=== PATIENT | male | born 1940 | race Caucasian/White ===

== ENCOUNTER → 2017-11-14 08:44 | Outpatient (CLI) | payer MEDICARE, SELFPAY ==
[2017-11-14 10:41] LABS: Anion Gap 9 (5-15); BUN 38 mg/dL (7-18); BUN/Creat Ratio 19.8 RATIO (10-20); Calcium,Total 8.7 mg/dL (8.5-10.1); Chloride 111 mmol/L (98-107); Cholesterol 174 mg/dL (200); Creatinine, Serum 1.92 mg/dL (0.70-1.30); EST Glomerular Filtration Rate 36 mL/min (>60); Est Glom Filt Rate - Afr Amer 44 mL/min (>60); Glucose 125 mg/dL (74-106); High Density Lipoprotein 32 mg/dL; Potassium 4.7 mmol/L (3.5-5.1); Sodium Level 142 mmol/L (136-145); Triglycerides 232 mg/dL; Very Low Density Lipoprotein 46 mg/dL (5-40)
== END ==
PROVIDERS: Family Provider Family Medicine; PCP Family Medicine; Visit Provider Family Medicine
DX: I10 Essential (primary) hypertension (principal)
CPT/HCPCS: 36415; 80048; 80061

== ENCOUNTER → 2019-01-06 10:11 | Outpatient (CLI) | payer MEDICARE, SELFPAY ==
[2017-05-03 07:25] VITALS: BMI 38.6
--- NOTE | 2019-01-06 10:18 | RAD_ITS ---
HISTORY:heel pain heel pain COMPARISON: None FINDINGS: # of images incl. paperwork: 2 XR Calcaneus Min 2 Views: Right BONE AND JOINTS: No acute fracture or subluxation. SOFT TISSUES: Unremarkable. No radiopaque foreign body. RAD/Calcaneus min 2 Views IMPRESSION: No acute pathology at 0157 Reported and signed by: Angeline Brown DO Electronically Signed: Angeline Brown DO at 1:56 EDT Tel , Service support ,
--- NOTE | 2019-01-06 10:18 | RAD_ITS ---
HISTORY:heel pain heel pain COMPARISON: None FINDINGS: # of images incl. paperwork: 2 XR Calcaneus Min 2 Views: Left BONE AND JOINTS: No acute fracture or subluxation. SOFT TISSUES: Unremarkable. No radiopaque foreign body. RAD/Calcaneus min 2 Views IMPRESSION: No acute pathology at 0158 Reported and signed by: Angeline Brown DO Electronically Signed: Angeline Brown DO at 1:57 EDT Tel , Service support ,
== END ==
PROVIDERS: Family Provider Family Medicine; PCP Family Medicine; Referring Provider Family Medicine; Visit Provider Family Medicine
DX: M79.672 Pain in left foot (principal); M79.671 Pain in right foot
CPT/HCPCS: 73650

== ENCOUNTER → 2020-01-10 16:10 | Outpatient (CLI) | payer MEDICARE, SELFPAY ==
[2017-05-03 07:25] VITALS: BMI 38.6
[2020-01-10 18:21] LABS: Anion Gap 9 (5-15); BUN 26 mg/dL (7-18); BUN/Creat Ratio 11.6 RATIO (10-20); Chloride 106 mmol/L (98-107); Creatinine, Serum 2.25 mg/dL (0.70-1.30); EST Glomerular Filtration Rate 30 mL/min (>60); Est Glom Filt Rate - Afr Amer 36 mL/min (>60); Glucose 139 mg/dL (74-106); Potassium 4.1 mmol/L (3.5-5.1); Sodium Level 139 mmol/L (136-145)
--- OUTSIDE RECORDS SUMMARY | 2020-05-14 13:50 | XMS RPT_ITS | CCD ---
:1940 External Reference #:[id number] Author Organization [facility] Care Team Providers Name Role Phone Cornelio JAVA USER INTERFACE DEVELOPER, N Unavailable Unavailable Cornelio JAVA USER INTERFACE DEVELOPER, N Unavailable Unavailable Cornelio JAVA USER INTERFACE DEVELOPER, N Unavailable Unavailable Allergies Reported Allergen Reaction(s) Severity Date of Onset Location acellular pertussis blisters in mouth Critical, 12-02-2013 - [facility] vaccine, inactivated and severe headache Critical (81717) / diphtheria toxoid vaccine, inactivated / poliovirus vaccine inactivated, type 1 (sifuentes) / poliovirus vaccine inactivated, type 2 (mef-1) / poliovirus vaccine inactivated, type 3 (saukett) / tetanus toxoid vacci amLODIPine caused pt loss of Critical, 05-11-2012 - [facility] in[facility] vision Critical (18840) diphtheria toxoid blisters in mouth Critical, 12-02-2013 - [facility] Clinic vaccine, inactivated and severe headache Critical (04600) / tetanus toxoid vaccine, inactivated Sulfonamides upset stomch, Critical, [facility] (Antibiotic) itching, groggy Critical (38380) Medications Medication Name Sig Date Prescriber Location acetaminophen TYLENOL TABS 10-12-2010 [facility] ACETAMINOPHEN TABS (15867) [id number] Jose Meza MD TYLENOL TABS ACETAMINOPHEN TABS [id number] [facility] (57491) Jose Meza MD TYLENOL TABS ACETAMINOPHEN TABS 10-12-2010 [facility] (48250) [id number] Jose Meza MD TYLENOL TABS ACETAMINOPHEN TABS [id number] [facility] (87340) Jose Meza MD TYLENOL TABS ACETAMINOPHEN TABS [id number] [facility] (66628) Jose Meza MD TYLENOL TABS ACETAMINOPHEN TABS 10-12-2010 [facility] (21559) [id number] Jose Meza MD acetaminophen / ACETAMINOPHEN-CODEINE #3 06-03-2013 - [facility] Now codeine 300-30 MG TABS One tablet 09-07-2014 Cl inic by mouth three times daily ( 39658) as needed pain ACETAMINOPHEN-CODEINE [id number] Jose Meza MD acetaminophen / HYDROCODONE-ACETAMINOPHEN 09-07-[address] [facility] Now HYDROcodone 5-325 MG TABS one tablet Cli trixie by mouth every 4-6hr as (449 00) needed moderate to severe pain, avoid driving or operating machine under the influence of medication. HYDROCODONE-ACETAMINOPHEN [id number] Jose Meza MD acetaminophen / OXYCODONE-ACETAMINOPHEN 06-04-2013 [facility] Now oxyCODONE 5-325 MG TABS One tablet 11-29-2013 Cli [place] by mouth three times daily ( 91479) as needed moderate to severe pain, avoid driving or operating machine under the influence of medication. OXYCODONE-ACETAMINOPHEN [id number] Jose Meza MD PERCOCET 5-325 MG TABS for severe apin 07-03-2010 [facility] (75873) OXYCODONE-ACETAMINOPHEN [id number] Jose Meza MD allopurinol ALLOPURINOL TABS as directed 06-09-2017 [facility] (03543) ALLOPURINOL TABS [id number] Nani Grimes LPN ALLOPURINOL TABS as directed 06-09-2017 [facility] (70290) ALLOPURINOL TABS [id number] Nani Grimes LPN ALLOPURINOL TABS as directed 06-09-2017 [facility] (55347) ALLOPURINOL TABS [id number] Nani Grimes LPN ALLOPURINOL 300 MG TABS One tablet 11-29-2013 - 02-10-2014 [facility] (75234) by mouth daily ALLOPURINOL [id number] Jose Meza MD amitriptyline AMITRIPTYLINE HCL 10 MG 11-29-2013 - Laurita Islas Arianna [facility] TABS One to two tablets 12-17-2013 (446 91) by mouth daily every night AMITRIPTYLINE HCL [id number] Jose Meza MD amLODIPine AMLODIPINE BESYLATE 5 03-13-2012 [facility] No w Clinic MG TABS One tablet by 11-29-2013 (69549 ) mouth daily AMLODIPINE BESYLATE [id number] Jose Meza MD betamethasone BETAMETHASONE VALERATE 10-26-2010 [facility] 0.1 % OINT apply to 01-29-2011 (82683) affected area in leg twice daily BETAMETHASONE VALERATE 63742440941 Jose Meza MD cephalexin KEFLEX 500 MG CAPS one 07-03-2010 [facility] cap every six hrs x 9 (54371 ) days CEPHALEXIN [id number] Jose Meza MD cetirizine ZYRTEC ALLERGY 10 MG 10-29-2010 - [facility] CAPS One tablet by 01-29-2011 (30881) mouth daily CETIRIZINE HCL [id number] Jose Meza MD ZYRTEC ALLERGY 10 MG TABS 10-12-2010 - - Jose Friedman [facility] One tablet by mouth daily (90540 ) CETIRIZINE HCL [id number] Jose Meza MD clindamycin CLEOCIN-T 1 % LOTN apply 02-25-2011 - 06-03-2013 [facility] twice daily as needed (92403 ) CLINDAMYCIN PHOSPHATE [id number] Jose Meza MD colchicine COLCHICINE TABS as 06-09-2017 [facility] C linic directed (96230) COLCHICINE TABS [id number] Nani Grimes LPN COLCHICINE TABS as directed COLCHICINE 06-09-2017 [facility] (19464) TABS [id number] Nani Grimes LPN COLCHICINE TABS as directed COLCHICINE 06-09-2017 [facility] (33897) TABS [id number] Nani Grimes LPN cyclobenzaprine CYCLOBENZAPRINE HCL 5 MG 02-10-2014 - [facility] TABS One tablet by mouth 03-25-2014 (44 691) three times daily as needed, avoid driving or operating machine under the influence of medication. CYCLOBENZAPRINE HCL [id number] Jose Meza MD CYCLOBENZAPRINE HCL 5 MG TABS One 10-21-2011 - 12-13-2011 [facility] (92517) tablet by mouth three times daily as needed back pain, avoid driving or operating machine under the influence of medication. CYCLOBENZAPRINE HCL [id number] Jose Meza MD FLEXERIL 5 MG TABS One tablet by 07-03-2010 - 01-29-2011 [facility] (40977) mouth three times daily CYCLOBENZAPRINE HCL [id number] Jose Meza MD cycloSPORINE RESTASIS 0.05 % EMUL 04-19-2014 - Jose Meaz MD [facility] Now 1 gtt each eye twice 06-09-2017 Clinic daily (73445) CYCLOSPORINE [id number] Jose Meza MD desonide DESONIDE 0.05 % CREA 08-13-2012 - Jose Meza MD [facility] Now apply to affected 06-09-2017 Clinic area twice daily (88879) DESONIDE [id number] Jose Meza MD diclofenac VOLTAREN 1 % GEL 2-4 04-06-2013 [facility] Now gram apply to 09-07-2014 Clinic affected area three (44887) times a day as needed DICLOFENAC SODIUM 54091210980 Jose Meza MD dicloxacillin DICLOXACILLIN SODIUM 10-12-2010 [facility] No w 500 MG CAPS One 12-04-2010 Clinic tablet by mouth four (23488) times daily DICLOXACILLIN SODIUM [id number] Torsten Velasquez DO etodolac ETODOLAC 300 MG CAPS 10-15-2011 - Jose Meza MD [facility] Now One tablet by mouth 01-15-2012 [facility] three times daily as (19595) needed, take with food ETODOLAC [id number] Jose Meza MD fluticasone FLONASE 50 MCG/ACT 10-12-2010 - Jose Meza MD [facility] No w SUSP 2 spray/nostril 01-29-2011 Clinic daily (70832) FLUTICASONE PROPIONATE [id number] Jose Meza MD HANDICAPPED PLACARD HANDICAPPED PLACARD 06-03-2013 - W Now Dx: degenerative 06-09-2017 Clinic joint disease, (96098) chronic back pain duration: 2 years HANDICAPPED MARIANA Grimes LPN HANDICAPPED PLACARD Dx: 06-03-[address] [facility] Clinic degenerative joint (88314) disease, chronic back pain duration: 2 years HANDICAPPED MARIANA Meza MD HANDICAPPED PLACARD Dx: 06-03-[address] [facility] degenerative joint (63502) disease, chronic back pain duration: 2 years HANDICAPPED MARIANA Meza MD HANDICAPPED PLACARD Dx: 06-03-2013 - 06-09-2017 [facility] degenerative joint (93132) disease, chronic back pain duration: 2 years HANDICAPPED MARIANA Grimes LPN HANDICAPPED PLACARD Dx: 06-03-[address] [facility] degenerative joint (79579) disease, chronic back pain duration: 2 years HANDICAPPED MARIANA Meza MD HANDICAPPED PLACARD Dx: 06-03-2013 - 06-09-2017 [facility] degenerative joint (22795) disease, chronic back pain duration: 2 years HANDICAPPED MARIANA Grimes LPN hydroCHLOROthiazide HYDROCHLOROTHIAZIDE 12.5 01-29-2011 [facility] Now MG TABS One tablet by 06-25-2012 Clinic mouth daily (4469 1) HYDROCHLOROTHIAZIDE [id number] Jose Meza MD hydrocortisone ANUSOL-HC 2.5 % CREA 07-03-2010 - Jose Meza [facility] N ow apply to affected area 10-12-2010 Clini c three times a day as (95060) needed HYDROCORTISONE [id number] Jose Meza MD indomethacin INDOMETHACIN 25 MG CAPS 1 06-09-2017 Ramses Islas [facility] Now capsule 4 times a day Arnulfo DELGADO [facility] INDOMETHACIN (446 91) [id number] Ramses Arredondo MS INDOMETHACIN 50 MG CAPS 09-07-2014 - 06-09-[address] [facility] One tablet by mouth three (18765 ) times daily as needed, take with food INDOMETHACIN [id number] Jose Meza MD ketoconazole KETOCONAZOLE 2 % CREA 10-26-2010 - Jose Meza MD [facility] apply to affected 06-09-2017 (51303) area twice daily KETOCONAZOLE [id number] Jose Meza MD lisinopril LISINOPRIL 10 MG TABS 12-30-[address] [facility] One tablet by mouth (45471) daily LISINOPRIL [id number] Jose Meza MD LISINOPRIL TABS as 12-30-2013 [facility] Clini c directed (16122) LISINOPRIL TABS [id number] Nani Grimes LPN LISINOPRIL TABS as 12-30-2013 [facility] Now Clini c directed (64568) LISINOPRIL TABS [id number] Nani Grimes LPN LISINOPRIL TABS as 12-30-2013 [facility] Clini c directed (69579) LISINOPRIL TABS [id number] Nani Grimes LPN LISINOPRIL 20 MG TABS One 11-13-2011 - 03-13-[address] [facility] tablet by mouth daily (47010) LISINOPRIL [id number] Jose Meza MD LISINOPRIL 20 MG TABS One 07-03-2010 - 10-12-2010 [facility] tablet by mouth daily (06569) LISINOPRIL 41996741333 Jose Meza MD magnesium oxide MAGNESIUM 400 MG CAPS 02-10-2014 - [facility] One tablet by mouth 06-22-2014 (51196) twice daily MAGNESIUM OXIDE [id number] Jose Meza MD metFORMIN METFORMIN HCL 500 MG 07-03-2010 - [facility] TABS One tablet by 10-12-2010 (68231) mouth daily METFORMIN HCL [id number] Jose Meza MD metoprolol METOPROLOL SUCCINATE 11-29-2013 - [facility] ER 50 MG VM59O-OLD One 02-10-2014 (4469 1) tablet by mouth daily METOPROLOL SUCCINATE [id number] Jose Meza MD MULTIPLE CENTRUM TABS One 06-09-2017 [facility] Now Cli trixie VITAMINS-MINERALS tablet by mouth daily ( 72257) MULTIPLE VITAMINS-MINERALS [id number] Nani Grimes JAVA USER INTERFACE DEVELOPER CENTRUM TABS One tablet by mouth daily MULTIPLE [facility] (40805) VITAMINS-MINERALS [id number] Jose Meza MD CENTRUM TABS One tablet by mouth daily 06-09-2017 [facility] (00168) MULTIPLE VITAMINS-MINERALS [id number] Nani Grimes JAVA USER INTERFACE DEVELOPER CENTRUM TABS One tablet by mouth daily MULTIPLE [facility] (66748) VITAMINS-MINERALS [id number] Jose Meza MD CENTRUM TABS One tablet by mouth daily 06-09-2017 [facility] (15935) MULTIPLE VITAMINS-MINERALS [id number] Nani Grimes JAVA USER INTERFACE DEVELOPER CENTRUM TABS One tablet by mouth daily MULTIPLE [facility] (17707) VITAMINS-MINERALS [id number] Jose Meza MD mupirocin BACTROBAN 2 % OINT 10-12-2010 - Jose Meza MD [facility] No w Clinic apply to affect area 10-22-2010 (84277) 4 times daily MUPIROCIN [id number] Jose Meza MD naproxen ALEVE 220 MG TABS 11-13-2011 [facility] Cl inic two tabs as needed (19844) NAPROXEN SODIUM 75891026956 Jose Meza MD nebivolol BYSTOLIC 10 MG TABS 06-22-2014 - Jose Meza MD [facility] ow Clinic One tablet by mouth 09-07-2014 (36555) daily NEBIVOLOL HCL [id number] Jose Meza MD olopatadine PATANOL 0.1 % SOLN 1 04-10-2010 - [facility] gtt twice daily 07-03-2010 (12731) OLOPATADINE HCL [id number] Jose Meza MD osteo bi-flex OSTEO BI-FLEX 03-13-2012 [facility] Clini c REGULAR STRENGTH (33752) TABS One tablet by mouth twice daily` GLUCOSAMINE-CHONDROI TIN TABS [id number] Jose Meza MD OSTEO BI-FLEX REGULAR STRENGTH TABS 03-13-2012 [facility] One tablet by mouth daily (90510) GLUCOSAMINE-CHONDROITIN TABS [id number] Jose Meza MD OSTEO BI-FLEX REGULAR STRENGTH TABS 03-13-2012 - 06-22-2014 [facility] One tablet by mouth twice daily` (93327) GLUCOSAMINE-CHONDROITIN TABS [id number] Jose Meza MD OSTEO BI-FLEX REGULAR STRENGTH TABS 03-13-2012 [facility] One tablet by mouth twice daily` (37618) GLUCOSAMINE-CHONDROITIN TABS [id number] Jose Meza MD OSTEO BI-FLEX REGULAR STRENGTH TABS 03-13-2012 [facility] One tablet by mouth daily (69347) GLUCOSAMINE-CHONDROITIN TABS [id number] Jose Meza MD OSTEO BI-FLEX REGULAR STRENGTH TABS 03-13-2012 - 06-22-2014 [facility] One tablet by mouth twice daily` (72433) GLUCOSAMINE-CHONDROITIN TABS [id number] Jose Meza MD OSTEO BI-FLEX REGULAR STRENGTH TABS 03-13-2012 - 06-22-2014 [facility] One tablet by mouth twice daily` (19074) GLUCOSAMINE-CHONDROITIN TABS [id number] Jose Meza MD OSTEO BI-FLEX REGULAR STRENGTH TABS 03-13-2012 [facility] One tablet by mouth twice daily` (39639) GLUCOSAMINE-CHONDROITIN TABS [id number] Jose Meza MD OSTEO BI-FLEX REGULAR STRENGTH TABS 03-13-2012 [facility] One tablet by mouth daily (72916) GLUCOSAMINE-CHONDROITIN TABS [id number] Jose Meza MD OSTEO BI-FLEX REGULAR STRENGTH TABS [facility] GLUCOSAMINE-CHONDROITIN TABS (44 691) [id number] Jose Meza MD OSTEO BI-FLEX REGULAR STRENGTH TABS [facility] GLUCOSAMINE-CHONDROITIN TABS (44 691) [id number] Jose Meza MD OSTEO BI-FLEX REGULAR STRENGTH TABS [facility] GLUCOSAMINE-CHONDROITIN TABS (44 691) [id number] Jose Meza MD prazosin PRAZOSIN HCL 1 MG 10-29-2010 - [facility] Now Cl inic CAPS One tablet by 01-29-2011 (90326) mouth twice daily PRAZOSIN HCL [id number] Jose Meza MD predniSONE PREDNISONE 20 MG TABS 12-17-2013 - Jose Meza MD [facility] Two tablets by mouth 12-22-2013 (87479) daily PREDNISONE [id number] Jose Meza MD PREDNISONE 20 MG TABS One 10-26-2010 - 12-04-[address] [facility] tablet by mouth twice (75928) daily PREDNISONE [id number] Jose Meza MD sildenafil VIAGRA 50 MG TABS one 07-19-2011 - [facility] No w Clinic daily as needed 12-13-2011 (48356) SILDENAFIL CITRATE [id number] Jose Meza MD tamsulosin TAMSULOSIN HCL 0.4 MG 03-08-2014 - Jose Meza MD [facility] CAPS One tablet by 06-09-2017 (77220) mouth daily TAMSULOSIN HCL [id number] Jose Meza MD FLOMAX CAPS One tablet by mouth daily TAMSULOSIN HCL CAPS [facility] (11944) [id number] Jose Meza MD FLOMAX CAPS One tablet by mouth daily TAMSULOSIN HCL CAPS [facility] (40113) [id number] Jose Meza MD FLOMAX CAPS One tablet by mouth daily TAMSULOSIN HCL CAPS [facility] (17848) [id number] Jose Meza MD triamcinolone TRIAMCINOLONE 09-21-2014 - [facility] Now ACETONIDE 0.025 % 06-09-2017 Clinic OINT apply to (99445) affected area twice daily for short period of time TRIAMCINOLONE ACETONIDE [id number] Nani Grimes JAVA USER INTERFACE DEVELOPER varicella-zoster ZOSTAVAX 91106 11-29-2013 - Jose Meza MD [facility] No w virus vaccine live UNT/0.65ML SUSR one 06-09-2017 Cl inic ([place]-merck) strain dose sc once (94438) ZOSTER VACCINE LIVE [id number] Jose Meza MD Problems Active Problems Category Problem Name Status Date Location Acute and unspecified Renal failure syndrome Active - [facility] renal failure (27820) Essential hypertension Benign essential Active 04-10-2010 - [facility] hypertension (10957) Gout and other crystal Gout Active 11-29-2013 - [facility] ow Clinic arthropathies (39927) Hyperplasia of prostate Benign prostatic Active 04-10-2010 - [facility] hyperplasia without (30301) lower urinary tract symptoms Inflammation, infection Atopic conjunctivitis Active 04-10-20 10 - [facility] Clinic of eye (28430) Osteoarthritis Osteoarthritis Active [facility] Now Cli [place] (91349) Other nutritional; Obesity Active 04-10-2010 - [facility] Now C linic endocrine; and metabolic (44 691) disorders Other upper respiratory Allergic rhinitis Active 10-26-2010 [facility] disease (09170) Spondylosis; Chronic low back pain Active 07-28-1969 [facility] intervertebral disc (61054) disorders; other back problems Unclassified Male erectile disorder Active 07-19-2011 [facility] (50214) Unclassified General examination of Active 10-29-2010 [facility] patient (72582) Unclassified Screening for malignant Active 10-12-2010 [facility] neoplasm of colon (55257) Past or Other Problems Category Problem Name Status Date Location Abdominal pain Flank pain Completed 05-09-2011 [facility] Clini c - 06-03-2013 (62911) - Deficiency and other Anemia Completed 12-17-2013 [facility] anemia (65706) Diabetes mellitus without Impaired fasting Completed 07-03-2010 [facility] complication glycaemia (33724) Genitourinary symptoms Proteinuria Completed 06-25-2012 [facility] and ill-defined (65296) conditions Hemorrhoids External hemorrhoids Completed 07-03-2010 [facility] (96847) Immunizations and Need for prophylactic Completed 05-11-2012 [facility] screening for infectious vaccination and - 02-10-2014 (63384) disease inoculation against - lesgjplajb-ljbmgod-cz rtussis, combined [DTP] [DTaP] Mycoses Pityriasis versicolor Completed 02-25-2011 [facility] (22272) Nutritional deficiencies Cobalamin deficiency Completed 03-25-20 [facility] (10084) Other gastrointestinal Chronic constipation Completed 05-15-2011 [facility] disorders (81036) Other inflammatory Pruritus of skin Completed 10-26-2010 [facility] condition of skin (11883) Other injuries and Foreign body of foot Completed 09-21-2014 [facility] conditions due to (56112) external causes Other nervous system Paresthesia Completed 11-29-2013 [facility] disorders - 02-10-2014 (26111) - Other non-traumatic joint Arthralgia of the Completed 06-03-2013 [facility] disorders ankle and/or foot (03858) Other skin disorders Folliculitis Completed 04-10-2010 - [facility] Clinic - 02-10-2014 (04750) - Other upper respiratory Acute sinusitis Completed 10-12-2010 [facility] Clinic infections - 06-03-2013 (20106) - Skin and subcutaneous Cellulitis of foot Completed 04-10-2010 - [facility] Clinic tissue infections - 02-10-2014 (27051) - Unclassified Stool finding Completed 06-25-2012 [facility] Now [facility] - 04-06-2013 (67901) - Unclassified Immunization status Completed 10-29-2010 - [facility] Clinic - 02-10-2014 (64295) - Unclassified Encounter for Completed 04-10-2010 [facility] Clinic screening for (88080) malignant neoplasm of prostate Results Result Name Value Range Unit Interpretation Flag Date Location progress on 2020-01 PROGRESS HNO ID: [id number] Normal 02-24-2020 [facility] Author: Robi Restrepo ([id number]) Service: ? Author Type: Physician Type: Progress Notes Filed: 02/24/2020 2:32 PM Note Text: Assessment and Plan 1. Dry eye syndrome of both eyes -with tearing and eyelid skin irritation 2. 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 Senile ectropion of left lower eyelid -main culprits in tearing (impaired tear dynamics) 5. Combined form of age-related cataract, both eyes -early visual significance Plan: -artificial tears ointment 1-twice a day both eyes -if not better, to see oculoplastics -back to me in 1 year (spends in [place]) for dilate d fundus exam and evaluation of cataract progression, sooner as needed I have confirmed and edited as necessary the relevant ophtha lmic history, ROS, and the neuro exam findings as obtained by others. I mitchell ve seen and examined Frederick Harding. I have discussed the case and the management of this patient 's care with the Resident/Fellow, if applicable. I also have reviewed and agree with the assessment and plan as stated above and agree with all o f its relevant components. Robi Michelle MD February 24, 2020 2:31 PM office visit: uc: gout exacerbation on 2017-06-09 Dietary management yes Invalid 06-09-2017 - [facility] Now education, guidance, Interpretation Code 06-09-2017 Clinic and counseling (4469 1) (procedure) Documentation of Done Invalid 06-09-2017 [facility] Now current medications Interpretation Code 06-09-2017 Clinic (procedure) (41037) Fall risk assessment No Invalid [facility] Now Interpretation Code 06-09-2017 Clinic (36867) Tobacco smoking Never Invalid 06-09-2017 - [facility] Now status NHIS Interpretation Code 06-09-20 17 Clinic (84294) Tobacco use CPHS Former Invalid 06-09-2017 [facility] Now smoker Interpretation Code 06-09-2017 Clinic (82903) office visit on 11-27-25 Dietary management yes Invalid Interpretatio n 10-20-2014 [facility] Now Clinic education, guidance, Code 5 (11781) and counseling (procedure) Documentation of Done Invalid Interpretation 10-20-2014 [facility] Now Clinic current medications Code 10-20-2014 (68811) (procedure) lab report: vitamin d,25 hydroxy on 2014-08-05 Vitamin D 25-OH 25.6 ng/mL Invalid Interpretation 0 08-05-2014 [facility] Now Clinic Code 08-05-2014 (93807) lab report: pth,intact on 2014-08-05 Parathyrin intact 89 14-72 pg/mL Critically high 2014 [facility] Now Clinic (PTH) 08-05-2014 (15460) lab report: uric acid on 2014-08-04 Urate 8.5 3.5-7.2 mg/dL Critically high 08-04-2014 - 0 08-04-2014 [facility] Clinic (34924) lab report: protein+creatinine ratio,uri ne on 2014-08-04 PROT:CRE RATIO 82 mg/g 0-200 Invalid 08-04-2014 [facility] H Now CRE Interpretation Code 08-04-2014 Clinic (71695) Protein [Mass] 10.6 <11.9 mg/dL Invalid 08-04-2014 H Now in Urine Interpretation Code 08-04-2014 Clinic collected for (54907 ) unspecified duration Urine, 128.3 NO RANGE mg/dL Invalid 08-04-2014 [facility] Now creatinine EST. Interpretation Code 5 Clinic (83785) lab report: phosphorus on 2014-08-04 PHOS 2.6 2.5-4.9 mg/dL Invalid Interpretation 015 - [facility] Now Clinic Code 08-04-2014 (81197) lab report: magnesium on 2014-08-04 Magnesium 1.5 1.8-2.4 mg/dL Critically low 08-04-2014 - [facility] Now Clinic (84352) lab report: lipid profile on 2014-08-04 Cholesterol 197 200 mg/dL Invalid 08-04-2014 [facility] N ow Interpretation Code 08-04-2014 Clinic (91147) HDL Cholesterol 34 mg/dL Critically low 5 - [facility] Now 08-04-2014 Clinic (63397) LDL Cholesterol 116 0-130 mg/dL Invalid 08-04-2014 - [facility] Now Interpretation Code 08-04-2014 Clinic (34141) Triglyceride 237 0-199 mg/dL Critically high 08-04-2014 - [facility] Now 08-04-2014 Clinic (32672) very low density 47 5-40 mg/dL Critically high 015 - [facility] Now lipoproteins 08-04-2014 Clinic (93406) lab report: hemoglobin a1c on 2014-08-04 Hemoglobin 5.9 4.2-6.3 % Invalid 08-04-2014 [facility] No w A1c/Hemoglobin.total mass Interpretation Code 08-04-2014 Clinic fraction (Bld) ([id number] 1) lab report: cbc w/diff, automated on 2014-08-04 Absolute Neut 5.0 X10 2.0-7.7 Invalid 08-04-2014 [facility] Now 3/UL Interpretation 08-04-2014 Clin ic Code (97731) Basophils/100 WBC 0.4 0-1 % Invalid 08-04-2014 - [facility] Now Auto (Bld) Interpretation 08-04-2014 Cli trixie Code (47242) Eosinophils/100 2.6 0-5 % Invalid 08-04-2014 - [facility] Now leukocytes Interpretation 08-04-2014 Cli trixie Code (31223) Erythrocytes 4.62 4.6-6.2 10*6/u Invalid 08-04-2014 [facility] Now (RBC) L Interpretation 08-04-2014 Clin ic Code (16504) Hematocrit (HCT) 40.6 40-54 % Invalid 08-04-2014 [facility] Now Interpretation 08-04-2014 Clin ic Code (42215) Hemoglobin mass 13.8 13.0-16.5 g/dL Invalid 08-04-2014 [facility] Now conc (Bld) Interpretation 08-04-2014 Cli trixie Code (23698) Lymphocytes/100 20.2 19-41 % Invalid 08-04-2014 [facility] Now leukocytes Interpretation 08-04-2014 Cli trixie Code (37952) MCH 29.9 27.0-32.0 pg Invalid 08-04-2014 [facility] Now Interpretation 08-04-2014 Clin ic Code (51224) MCHC mass conc 34.0 G/GL 32-36 Invalid 08-04-2014 [facility] Now (RBC) Interpretation 08-04-2014 Clin ic Code (81072) MCV 87.9 80-94 fL Invalid 08-04-2014 [facility] Now Interpretation 08-04-2014 Clin ic Code (13439) Monocytes/100 9.1 0-10 % Invalid 08-04-2014 [facility] Now leukocytes Interpretation 08-04-2014 Cli trixie Code (92093) Neutrophils/100 67.4 47-70 % Invalid 08-04-2014 Now WBC Auto (Bld) Interpretation 08-04-2014 Clinic Code (54158) Platelets 215 150-450 10*3/m Invalid 08-04-2014 [facility] Now m3 Interpretation 08-04-2014 Clin ic Code (28076) PMV by Johann 9.4 6.2-12.0 fL Invalid 08-04-2014 [facility] Now Interpretation 08-04-2014 Clin ic Code (26395) WBC (Leukocytes) 7.4 4.4-11.0 10*9/L Invalid 08-04-2014 [facility] Now Interpretation 08-04-2014 Clin ic Code (20918) lab report: basic metabolic profile (bmp ) on 2014-08-04 Anion gap 8 5-15 mmol/L Invalid 08-04-2014 [facility] Now Interpretation Code 08-04-2014 Clinic ([id number]) BUN/Creatinine 11.6 RATIO 10-20 Invalid 08-04-2014 - [facility] Now Ratio Interpretation Code 08-04-2014 Clinic (32559) Calcium 8.8 8.5-10.1 mg/dL Invalid 08-04-2014 [facility] Now Interpretation Code 08-04-2014 Clinic (43421) Chloride 106 98-107 mmol/L Invalid 08-04-2014 [facility] Now Interpretation Code 08-04-2014 Clinic ([id number]) CO2 23.0 21.0-32.0 mmol/L Invalid 08-04-2014 [facility] Now Interpretation Code 08-04-2014 Clinic ([id number]) Creatinine 1.9 0.8-1.3 mg/dL Critically high 08-04-2014 - [facility] Now 08-04-2014 Clinic (48095) Glucose mass 120 70-110 mg/dL Critically high 08-04-2014 - [facility] Now conc 08-04-2014 Clinic ([id number]) Potassium molar 4.4 3.5-5.1 mmol/L Invalid 08-04-2014 - [facility] Now conc Interpretation Code 08-04-2014 Clinic (75616) Sodium 137 136-145 mmol/L Invalid 08-04-2014 [facility] Now Interpretation Code 08-04-2014 Clinic ([id number]) Urea nitrogen 22 7-18 mg/dL Critically high 08-04-2014 [facility] Now 08-04-2014 Clinic ([id number]) lab report: albumin, serum on 2014-08-04 Albumin 3.9 3.4-5.0 g/dL Invalid Interpretation 015 - [facility] Now Clinic Code 08-04-2014 ([id number]) lab report: methyl on 2014-03-24 METHYL 200 0-378 nmol/L Normal 03-24-2013 - 03-24-[address] [facility] Now [facility] ([id number]) lab report: retic o n 2014-03-21 Reticulocytes/100 1.33 0.5-1.5 % Normal 03-21-2014 [facility] Now Clinic erythrocytes 03-21-2014 ([id number] ) lab report: ibc on 2014-02-09 Iron 109 65-175 ug/dL Normal 02-09-2014 [facility] Now Clinic 02-09-2014 ([id number]) iron binding 291 250-450 ug/dL Normal 02-09-2014 [facility] Now Clinic capacity, total 02-09-2014 ([id number] [id number]) lab report: genesis on 2014-02-09 Ferritin 181 26-388 ng/mL Normal 02-09-2013 - 02-09-[address] [facility] Now [facility] ([id number]) clinical lists update on 2014-01-05 Tobacco use Former smoker Invalid 01-05-2014 - [facility] Now Clinic [facility] Interpretation Code 01-05-2014 ([id number]) office visit on 10-31-04 Tobacco smoking Never Invalid Interpretation 0 12-30-2013 [facility] Now Clinic status NHIS Code 12-30-2013 ([id number]) lab report: ua on specific gravity, 1.015 1.002-1.030 Normal 12-22-2013 [facility] Now Clinic urine 12-22-2013 ([id number]) lab report: tsh on 2013-12-22 Thyroid stimulating 1.64 0.358-3.74 u[iU]/mL Normal [facility] hormone (TSH) 12-22-2013 ([id number] 1) lab report: sed on 2013-12-22 Erythrocyte sedimentation 9 0-20 mm/h Normal 11-26 [facility] Now Clinic rate 12-22-2013 ([id number]) lab report: crp on 2013-12-22 C reactive protein < 2.90 0.0-3.0 mg/L Normal 12-22-2013 [facility] Clinic (CRP) 12-22-2013 ([id number]) lab report: cmp on 2013-12-22 Alanine 42 12-78 U/L Normal 12-22-2013 [facility] Now aminotransferase (ALT) [address] [place] [address] ([id number]) Albumin/Globulin Ratio 1.2 RATIO 0.9-2.4 {ratio} Normal - [facility] Now 12-22-2013 Clinic ([id number]) Aspartate 17 15-37 U/L Normal 12-22-2013 [facility] Now aminotransferase (AST) [facility] Clinic (55170) Bilirubin (total) 0.40 0.00-1.00 mg/dL Normal 12-22-2013 [facility] Now 12-22-2013 Clinic ([id number]) Globulin 3.0 2.7-4.2 g/dL Normal 12-22-2013 - [facility] Now 12-22-2013 Clinic ([id number]) Protein 6.7 6.4-8.2 g/dL Normal 12-22-2013 - [facility] Now 12-22-2013 Clinic ([id number]) lab report: b12 on 2013-12-22 Cobalamins (Vitamin 362 211-911 pg/mL Normal 12-22-2013 - [facility] Now Clinic B12) 12-22-2013 ([id number]) office visit on 201 09-07-28 Bilirubin Ql (U) negative Invalid 06-25-2012 [facility] Now Interpretation Code 06-25-2012 Clinic ([id number]) blood in urine 3+ Invalid 06-25-2012 [facility] Now (hemoglobin) by Interpretation Code 05-29 Clinic dipstick (15915) Urine, appearance clear Invalid 06-25-2012 [facility] Now Interpretation Code 06-25-2012 Clinic ([id number]) Urine, color yellow Invalid 06-25-2012 [facility] Now Interpretation Code 06-25-2012 Clinic ([id number]) Urine, glucose negative Invalid 06-25-2012 [facility] Now presence Interpretation Code 06-25-2012 Clinic ([id number]) Urine, ketones negative Invalid 06-25-2012 - [facility] Now presence Interpretation Code 06-25-2012 Clinic ([id number]) Urine, leukocyte negative Invalid 06-25-2012 [facility] Now esterase presence Interpretation Code Clinic ([id number]) Urine, nitrite negative Invalid 06-25-2012 [facility] Now presence Interpretation Code 06-25-2012 Clinic ([id number]) Urine, pH 6.0 [pH] Invalid 06-25-2012 [facility] Now Interpretation Code 06-25-2012 Clinic ([id number]) Urine, protein 3+ Invalid 06-25-2012 [facility] Now Interpretation Code 06-25-2012 Clinic ([id number]) Urine, urobilinogen negative Invalid 06-25-2012 [facility] Now presence Interpretation Code 06-25-2012 Clinic ([id number]) office visit on 201 08-06-27 Colonoscopy Normal Invalid Interpretation 05-24 - [facility] Now Clinic (procedure) Code 05-24-2011 ([id number]) lab report: insu on 2010-04-15 insulin, serum 16.5 0.0-24.9 u[iU]/mL Normal 04-15-2010 - [facility] Now Clinic 04-15-2010 ([id number]) lab report: psa on 2010-04-13 prostate specific 1.5 0.0-4.0 ng/mL Normal 04-13-2010 - [facility] antigen (PSA) 04-13-2010 ([id number] 1) screening lab report: cmp on 2010-04-13 Alkaline phosphatase 84 50-136 U/L Normal 0 - [facility] (ALP) 04-13-2010 ([id number]) Vital Signs Vital Sign Description Value / Unit Date Location The following section is limited to 5 en tries per type and includes entries from the following time range: 20141020 - 20170528 3. BMI (Body Mass Index) 36.58 kg/m2 06-09-2017 - 06-09-2017 [facility] ([id number]) BMI (Body Mass Index) 37.63 kg/m2 10-20-2014 - 10-20-2014 [facility] (06461) Body Temperature 98.5 [degF] 06-09-2017 - 06-09-2017 [facility] ([id number]) Body Temperature 96.8 [degF] 10-20-2014 - 10-20-2014 [facility] ([id number]) BP Diastolic 62 mm[Hg] 06-09-2017 - 06-09-2017 [facility] (68060) BP Diastolic 73 mm[Hg] 10-20-2014 - 10-20-2014 [facility] ([id number]) BP Diastolic 76 mm[Hg] 03-25-2014 - 03-25-2014 [facility] ([id number]) BP Systolic 122 mm[Hg] 06-09-2017 - 06-09-2017 [facility] ([id number]) BP Systolic 150 mm[Hg] 10-20-2014 - 10-20-2014 [facility] ([id number]) BP Systolic 117 mm[Hg] 03-25-2014 - 03-25-2014 [facility] ([id number]) BSA (Body Surface Area) 2.3 m2 10-20-2014 - 10-20-2014 [facility] Now [facility] ([id number]) Height 177.8 cm 06-09-2017 - 06-09-2017 [facility] Now Clinic ([id number]) Height 174.63 cm 04-10-2010 - 04-10-2010 [facility] Now Clinic ([id number]) Pulse (Heart Rate) 81 /min 06-09-2017 - 06-09-2017 [facility] N ow Clinic ([id number]) Pulse (Heart Rate) 77 /min 10-20-2014 - 10-20-2014 [facility] ([id number]) Respiratory Rate 15 /min 06-09-2017 - 06-09-2017 [facility] ([id number]) Respiratory Rate 16 /min 10-20-2014 - 10-20-2014 [facility] (51184) Weight 115.67 kg 06-09-2017 - 06-09-2017 [facility] ([id number]) Weight 114.76 kg 10-20-2014 - 10-20-2014 [facility] ([id number]) Procedures Procedure Name Date Provider Location Incision & removal foreign 09-21-2014 - Jose Meza MD [facility] ([id number]) body subq tiss simple 10-21-2014 *BMP 06-22-2014 - Jose Meza MD [facility] ( [id number]) 08-04-2014 *CBC with Differential 06-22-2014 - Jose Meza MD [facility] C linic ([id number]) 08-04-2014 Hemoglobin 06-22-2014 - Jose Meza MD [facility] ( 67922) A1c/Hemoglobin.total in Blood 08-04-2014 Magnesium [Mass/volume] in 03-25-2014 - Jose Meza MD [facility] ([id number]) Serum or Plasma 08-04-2014 CBC W Auto Differential panel 02-10-2014 - Jose Meza MD [facility] ([id number]) - Blood 03-21-2014 Folate [Mass/volume] in Serum 02-10-2014 - Jose Meza MD [facility] ([id number]) or Plasma 03-25-2014 Magnesium [Mass/volume] in 02-10-2014 - Jose Meza MD [facility] ([id number]) Serum or Plasma 03-21-2014 Reticulocytes/100 02-10-2014 - Jose Meza MD [facility] ([id number]) erythrocytes in Blood 03-21-2014 Other 02-10-2014 - Jose Meza MD [facility] ( [id number]) 02-11-2014 *BMP 12-30-2013 - Jose Meza MD [facility] ( [id number]) 02-09-2014 *CBC 12-30-2013 - Jose Meza MD [facility] ( [id number]) 02-09-2014 Blood occult peroxidase actv 12-30-2013 - Jose Meza MD [facility] Now Clinic ([id number]) qual feces 1 deter 02-09-2014 Ferritin [Mass/volume] in 12-30-2013 - Jose Meza MD [facility] No w Clinic ([id number]) Serum or Plasma 02-09-2014 Iron and Iron binding 12-30-2013 - Jose Meza MD [facility] Now Cl inic ([id number]) capacity panel - Serum or 02-09-2014 Plasma C reactive protein 12-17-2013 - Jose Meza MD [facility] Now Clini c ([id number]) [Mass/volume] in Serum or 02-09-2014 Plasma by High sensitivity method Cyclic citrullinated peptide 12-17-2013 - Jose Meza MD [facility] Now Clinic ([id number]) IgG Ab [Units/volume] in 03-25-2014 Serum or Plasma Podiatry Referral 12-17-2013 - Jose Meza MD [facility] Now Clinic ([id number]) 12-22-2013 Rheumatoid factor qualitative 12-17-2013 - Jose Meza MD [facility] Now Clinic ([id number]) 12-22-2013 Urate [Mass/volume] in Serum 12-17-2013 - Jose Meza MD [facility] Now Clinic ([id number]) or Plasma 12-22-2013 Other 12-17-2013 - Jose Meza MD [facility] Now Clinic ( [id number]) 02-09-2014 *CBC with Differential 11-29-2013 - Jose Meza MD [facility] Now C linic ([id number]) 12-22-2013 *CMP Complete Metabolic Panel 11-29-2013 - Jose Meza MD [facility] Now Clinic ([id number]) 12-22-2013 *UA - Urinalysis w/o Micro 11-29-2013 - Jose Meza MD [facility] N ow Clinic ([id number]) 12-23-2013 C reactive protein 11-29-2013 - Jose Meza MD [facility] Now Clini c ([id number]) [Mass/volume] in Serum or 12-22-2013 Plasma by High sensitivity method Cyanocobalamin vitamin b-12 11-29-2013 - Jose Meza MD [facility] Now Clinic ([id number]) 12-22-2013 EMG 11-29-2013 - Jose Meza MD [facility] Now Clinic ( 56388) 12-22-2013 Erythrocyte sedimentation 11-29-2013 - Jose Meza MD [facility] No w Clinic ([id number]) rate 12-22-2013 Lipid 1996 panel - Serum or 11-29-2013 - Jose Meza MD [facility] Now Clinic ([id number]) Plasma 12-22-2013 Nerve Conduction 11-29-2013 - Jose Meza MD [facility] Now Clinic ([id number]) 12-22-2013 Thyrotropin [Units/volume] in 11-29-2013 - Jose Meza MD [facility] ([id number]) Serum or Plasma 12-22-2013 Radex ankle complete minimum 06-03-2013 - Jose Meza MD [facility] Now Clinic ([id number]) 3 views 06-04-2013 Radex foot complete minimum 3 06-03-2013 - Jose Meza MD [facility] Now Clinic ([id number]) views 06-04-2013 Urate [Mass/volume] in Serum 06-03-2013 - Jose Meza MD [facility] Now Clinic ([id number]) or Plasma 06-03-2013 *BMP 06-25-2012 - Jose Meza MD [facility] Now Clinic ( [id number]) 06-25-2012 *CBC with Differential 06-25-2012 - Jose Meza MD [facility] Now C linic ([id number]) 06-25-2012 Erythrocyte sedimentation 06-25-2012 - Jose Meza MD [facility] No w Clinic ([id number]) rate 06-25-2012 Nephrology Referral 06-25-2012 - Jose Meza MD [facility] Now Clin ic ([id number]) 05-18-2013 Urinalysis complete panel - 06-25-2012 - Jose Meza MD [facility] Now Clinic ([id number]) Urine 06-25-2012 Follow Up Appt 2 months 03-13-2012 - Jose Meza MD [facility] Now Clinic ([id number]) 03-13-2012 Pain Management 01-15-2012 - Jose Meza MD [facility] Now Clinic ( [id number]) 01-14-2013 Follow Up Appt 3 months 12-13-2011 - Jose Meza MD [facility] Now Clinic ([id number]) 12-13-2011 Follow Up Appt 1 month 11-13-2011 - Jose Meza MD [facility] Now C linic ([id number]) 11-13-2011 Follow Up Appt 6 weeks 10-15-2011 - Jose Meza MD 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 Now Clinic ([id number]) point 1/2 muscles 10-15-2011 Follow Up Appt 3 months 05-09-2011 - Jose Meza MD [facility] Now Clinic ([id number]) 05-09-2011 Surgery Referral 05-09-2011 - Jose Meza MD [facility] Now Clinic ([id number]) 06-24-2011 Urnls dip stick/tablet rgnt 05-09-2011 - Jose Meza MD [facility] Now Clinic ([id number]) non-auto w/o micrscp 05-09-2011 Follow Up Appt 3 months 01-29-2011 - Jose Meza MD [facility] Now Clinic ([id number]) 05-09-2011 Follow Up Appt 3 months 10-29-2010 - Jose Meza MD [facility] Now Clinic ([id number]) 10-30-2010 Dermatology Referral 10-26-2010 - Jose Meza MD [facility] Now Cli trixie ([id number]) 10-27-2011 Follow Up as scheduled 10-26-2010 - Jose Meza MD [facility] Now C linic ([id number]) 10-29-2010 Follow Up as scheduled 10-12-2010 - Jose Meza MD [facility] Now C linic ([id number]) 10-12-2010 Hemoglobin glycosylated a1c 10-12-2010 - Jose Meza MD [facility] Now Clinic ([id number]) 10-15-2010 Basic metabolic panel calcium 07-30-2010 - Jose Meza MD [facility] Now Clinic ([id number]) total 07-31-2010 Follow Up Appt 3 months 07-30-2010 - Jose Meza MD [facility] Now Clinic ([id number]) 07-30-2010 Follow Up Appt 1 month 07-03-2010 - Jose Meza MD [facility] Now C linic ([id number]) 07-03-2010 Assay of thyroid stimulating 04-10-2010 - Jose Meza MD [facility] Now Clinic ([id number]) hormone tsh 04-13-2010 Blood count complete 04-10-2010 - Jose Meza MD [facility] Now Cli trixie ([id number]) automated 04-13-2010 Comprehensive metabolic panel 04-10-2010 - Jose Meza MD [facility] Now Clinic ([id number]) 04-13-2010 Follow Up Appt 3 months 04-10-2010 - Jose Meza MD [facility] Now Clinic ([id number]) 04-10-2010 Lipid panel 04-10-2010 - Jose Meza MD [facility] Now Clinic ( [id number]) 04-13-2010 PSA screening 04-10-2010 - Jose Meza MD [facility] Now Clinic ( [id number]) 04-13-2010 Plan of Treatment Plan Description Date Location Appointment Appointment 06-09-2017 - [facility] Now Clinic 06-09-2017 ([id number]) *Vitamin D (Calciferol) *Vitamin D (Calciferol) 10-20-2014 [facility] Now Clinic 10-20-2014 ([id number]) *Magnesium *Magnesium 10-20-2014 [facility] Now Clinic 10-20-2014 ([id number]) Incision and removal of Incision and removal of 09-21-2014 [facility] Now Clinic foreign body,subutaneous foreign body,subutaneous 10-21-2014 ([id number]) tissue, simple tissue, simple *BMP *BMP 06-22-2014 [facility] Now Clinic 08-04-2014 ([id number]) *CBC with Differential *CBC with Differential 06-22-2014 [facility] Now Clinic 08-04-2014 ([id number]) *HgA1C *HgA1C 06-22-2014 [facility] Now Clinic 08-04-2014 ([id number]) *Magnesium *Magnesium 03-25-2014 [facility] Now Clinic 08-04-2014 ([id number]) *CBC without Diff *CBC without Diff 02-10-2014 [facility] Now Clin ic 03-21-2014 ([id number]) *Folates-Folic Acid, *Folates-Folic Acid, 02-10-2014 [facility] No w Clinic Serum Serum 03-25-2014 ([id number]) *Magnesium *Magnesium 02-10-2014 [facility] Now Clinic 03-21-2014 ([id number]) *Reticulocyte Count *Reticulocyte Count 02-10-2014 [facility] Now Clinic 03-21-2014 ([id number]) Other Other 02-10-2014 [facility] Now Clinic 02-11-2014 ([id number]) *BMP *BMP 12-30-2013 [facility] Now Clinic 02-09-2014 ([id number]) *CBC *CBC 12-30-2013 [facility] Now Clinic 02-09-2014 ([id number]) Occult Stools (Office) Occult Stools (Office) 12-30-2013 [facility] Now Clinic 02-09-2014 ([id number]) *Ferritin *Ferritin 12-30-2013 [facility] Now Clinic 02-09-2014 ([id number]) *IBC Iron & Total Iron *IBC Iron & Total Iron 12-30-2013 [facility] Now Clinic Binding Capacity Binding Capacity 02-09-2014 ([id number]) *CRP - C-Reative Protein *CRP - C-Reative Protein 12-17-2013 [facility] Now Clinic 02-09-2014 ([id number]) *ANTICCP - CCP Antibody *ANTICCP - CCP Antibody 12-17-2013 [facility] Now Clinic 03-25-2014 ([id number]) Podiatry Referral no information 12-17-2013 [facility] Now Clinic Lauro Morris 12-22-2013 ([id number] ) Clinic [facility], [address] [place] [address], [address] *Rheumatoid Factor *Rheumatoid Factor 12-17-2013 [facility] Now Cl inic (qualiative) (qualiative) 12-22-2013 ([id number]) *Uric Acid Blood *Uric Acid Blood 12-17-2013 [facility] Now Clinic 12-22-2013 ([id number]) Other Other 12-17-2013 [facility] Now Clinic 02-09-2014 ([id number]) *CBC with Differential *CBC with Differential 11-29-2013 [facility] Now Clinic 12-22-2013 ([id number]) *CMP Complete Metabolic *CMP Complete Metabolic 11-29-2013 [facility] Now Clinic Panel Panel 12-22-2013 ([id number]) *UA - Urinalysis w/o *UA - Urinalysis w/o 11-29-2013 [facility] No w Clinic Micro Micro 12-23-2013 ([id number]) *CRP - C-Reative Protein *CRP - C-Reative Protein 11-29-2013 [facility] Now Clinic 12-22-2013 ([id number]) Vitamin B12/Folic Acid Vitamin B12/Folic Acid 11-29-2013 [facility] Now Clinic 12-22-2013 ([id number]) EMG EMG 11-29-2013 - [facility] Now Clinic 12-22-2013 ([id number]) *Sedimentation Rate (ESR) *Sedimentation Rate 11-29-2013 [facility] Now Clinic (ESR) 12-22-2013 ([id number]) *Lipid Profile *Lipid Profile 11-29-2013 [facility] Now Clinic 12-22-2013 ([id number]) Nerve Conduction Nerve Conduction 11-29-2013 [facility] Now Clinic 12-22-2013 ([id number]) Tdap Vaccine 7 YR + IM Tdap Vaccine 7 YR + IM 11-29-2013 - [facility] Now Clinic 12-22-2013 ([id number]) *TSH *TSH 11-29-2013 [facility] Now Clinic 12-22-2013 ([id number]) X-Ray, Ankle X-Ray, Ankle 06-03-2013 [facility] Now Clinic 06-04-2013 ([id number]) X-Ray, Foot X-Ray, Foot 06-03-2013 [facility] Now Clinic 06-04-2013 ([id number]) *Uric Acid Blood *Uric Acid Blood 06-03-2013 [facility] Now Clinic 06-03-2013 ([id number]) *BMP *BMP 06-25-2012 [facility] Now Clinic 06-25-2012 ([id number]) *CBC with Differential *CBC with Differential 06-25-2012 [facility] Now Clinic 06-25-2012 ([id number]) *Sedimentation Rate (ESR) *Sedimentation Rate 06-25-2012 [facility] Now Clinic (ESR) 06-25-2012 ([id number]) Nephrology Referral [place] Nephrology Referral [place] 06-25-2012 [facility] Now Clinic MD Kade, [address] MD Kade, 387 05-18-2013 ( [id number]) [place], [address] [place], [address] *UAC- Urinalysis, *UAC- Urinalysis, 06-25-2012 [facility] Now Clin ic Complete w/ Micro Complete w/ Micro 06-25-2012 ([id number]) Flu Vaccine >3yr Flu Vaccine >3yr 05-11-2012 [facility] Now Clinic (Preservative Free) (Preservative Free) 05-11-2012 ([id number]) Follow Up Appt 2 months Follow Up Appt 2 months 03-13-2012 [facility] Now Clinic 03-13-2012 ([id number]) Pain Management Ayman Pain Management Ayman 01-15-2012 [facility] Now Clinic [place] Basali, [address] [facility] Basali, 546 05-18-2013 ([id number]) [place], [facility] [address], [facility], [place], [address] [address], [place], [address] Follow Up Appt 3 months Follow Up Appt 3 months 12-13-2011 [facility] Now Clinic 12-13-2011 ([id number]) Follow Up Appt 1 month Follow Up Appt 1 month 11-13-2011 [facility] Now Clinic 11-13-2011 ([id number]) Follow Up Appt 6 weeks Follow Up Appt 6 weeks 10-15-2011 [facility] Now Clinic 10-15-2011 ([id number]) Injection Trigger Point Injection Trigger Point 10-15-2011 [facility] Now Clinic 1-2 Muscles 1-2 Muscles 10-15-2011 ([id number]) Follow Up Appt 3 months Follow Up Appt 3 months 05-09-2011 [facility] Now Clinic 05-09-2011 ([id number]) Surgery Referral Ham Surgery Referral Ham 05-09-2011 [facility] Now Clinic ESHA Chua, [address], [address] 06-24-2011 ([id number]) [place], [place], [place], [address] UA Dipstick (Office) UA Dipstick (Office) 05-09-2011 - [facility] No w Clinic 05-09-2011 ([id number]) Follow Up Appt 3 months Follow Up Appt 3 months 01-29-2011 [facility] Now Clinic 05-09-2011 ([id number]) Follow Up Appt 3 months Follow Up Appt 3 months 10-29-2010 - [facility] Now Clinic 10-30-2010 ([id number]) DT >7 years DT >7 years 10-29-2010 - [facility] Now Clinic 10-30-2010 ([id number]) Dermatology Referral [place] [facility] Referral 10-26-2010 - [facility], [address] Tor[place] Velasquez, [address] 06[address]24-2011 ([phone], [place], [address], [id number] [place], [address] Follow Up as scheduled Follow Up as scheduled 10-26-2010 - [facility] 10-29-2010 ([id number]) Follow Up as scheduled Follow Up as scheduled 10-12-2010 [facility] 10-12-2010 ([id number]) *HgA1C *HgA1C 10-12-2010 [facility] 10-15-2010 ([id number]) *BMP *BMP 07-30-2010 [facility] 07-31-2010 ([id number]) Follow Up Appt 3 months Follow Up Appt 3 months 07-30-2010 [facility] 07-30-2010 ([id number]) Follow Up Appt 1 month Follow Up Appt 1 month 07-03-2010 [facility] 07-03-2010 ([id number]) *PSA, Annual Screening *PSA, Annual Screening 04-10-2010 [facility] 04-13-2010 ([id number]) *CBC without Diff *CBC without Diff 04-10-2010 [facility] ic 04-13-2010 ([id number]) *CMP Complete Metabolic *CMP Complete Metabolic 04-10-2010 [facility] Panel Panel 04-13-2010 ([id number]) Follow Up Appt 3 months Follow Up Appt 3 months 04-10-2010 [facility] 04-10-2010 ([id number]) *Lipid Profile *Lipid Profile 04-10-2010 [facility] 04-13-2010 ([id number]) *TSH *TSH 04-10-2010 [facility] 04-13-2010 ([id number]) Patient education [facility] ([id number]) Immunizations Vaccine Notes Status Date Location influenza, seasonal, (completed) 05-11-2012 - [facility] injectable, preservative 05-11-2012 ([id number]) free tetanus and diphtheria (completed) 10-29-2010 - [facility] toxoids, adsorbed, 10-30-2010 ([id number]) preservative free, for adult use (2 Lf of tetanus toxoid and 2 Lf of diphtheria toxoid) tetanus toxoid, reduced (completed) 11-29-2013 - [facility] Now [facility] diphtheria toxoid, and 12-22-2013 ([id number]) acellular pertussis vaccine, adsorbed Summary Purpose Family History No Family History Records Found Advance Directives No Advanced Directives Records Found Additional Source Comments FOR RECORDS PERTAINING TO PATIENTS WHO ARE OR HAVE BEEN ENROLLED IN A CHEMICAL DEPENDENCY/SUBSTANCE ABUSE PROGRAM, SOME INFORMATION MAY BE OMITTED. This clinical summary was aggregated from multiple sources. Caution should be exercised in using it in the provision of clinical care. This summary normalizes information from multiple sources, and as a consequence, information in this document may materially changethe coding, format and clinical context of patient data. In addition, data may be omittedin some cases. CLINICAL DECISIONS SHOULD BE BASED ON THE PRIMARY CLINICAL RECORDS. [facility] provides no warranty or guarantee of the accuracy or completeness of information in this document. UNRECOGNIZED CONTENT PROVIDED BELOW FOR UNRECOGNIZED SECTION No Status Records Found UNRECOGNIZED CONTENT PROVIDED BELOW FOR UNRECOGNIZED SECTION INFORMATION SOURCE DATE CREATED AUTHOR 'S SONAM Hodges 02/25/2020 [facility]
== END ==
PROVIDERS: PCP Family Medicine; Visit Provider Family Medicine
DX: N19 Unspecified kidney failure (principal)
CPT/HCPCS: 36415; 80048

== ENCOUNTER → 2020-03-02 | Outpatient (CLI) | payer MEDICARE, SELFPAY ==
[2017-05-03 07:25] VITALS: BMI 38.6
[2020-03-02 12:24] LABS: Protein, Urine (Random) 16.2 mg/dL (<11.9); Protein:Creat Ratio 117 mg/g CRE (0-200)
== END | disposition home or self-care (01) ==
LOC: LABSPEC 09:55
PROVIDERS: PCP Family Medicine; Visit Provider Internal Medicine Nephrology
DX: R80.9 Proteinuria, unspecified (principal)
CPT/HCPCS: 82570; 84156

== ENCOUNTER → 2020-03-22 10:28 | Outpatient (CLI) | payer MEDICARE, SELFPAY ==
[2017-05-03 07:25] VITALS: BMI 38.6
[2020-03-22 12:49] LABS: Albumin, Serum 3.7 g/dL (3.2-5.0); BUN 29 mg/dL (7-18); BUN/Creat Ratio 11.2 RATIO (10-20); Calcium,Total 9.1 mg/dL (8.5-10.1); Chloride 109 mmol/L (98-107); Creatinine, Serum 2.59 mg/dL (0.70-1.30); EST Glomerular Filtration Rate 26 mL/min (>60); Est Glom Filt Rate - Afr Amer 31 mL/min (>60); Glucose 153 mg/dL (74-106); Magnesium 1.8 mg/dL (1.6-2.6); Phosphorus 2.3 mg/dL (2.5-4.9); Potassium 4.6 mmol/L (3.5-5.1); Sodium Level 139 mmol/L (136-145)
== END ==
PROVIDERS: PCP Family Medicine; Referring Provider Family Medicine; Visit Provider Internal Medicine Nephrology
DX: E83.42 Hypomagnesemia (principal); N18.3 Chronic kidney disease, stage 3 (moderate)
CPT/HCPCS: 36415; 80069; 83735

== ENCOUNTER → 2020-03-30 12:11 | Outpatient (CLI) | payer MEDICARE, SELFPAY ==
[2017-05-03 07:25] VITALS: BMI 38.6
[2020-03-30 13:08] LABS: 24 Hour Urine Protein 176.6 mg/24HR (<150 MG/24HR); 24HR. UA Prot. Total Volume 1650 mL; Urine Protein (24 Hour) 10.7 mg/dL (<11.9)
[2020-03-30 13:18] LABS: Creat.Clear Total Volume 1650 mL; Creatinine Clearance 57 ml/min (100-200); Creatinine Serum Creat 2.3 mg/dL (0.8-1.3); Creatinine, Serum 2.27 mg/dL (0.70-1.30); EST Glomerular Filtration Rate 30 mL/min (>60); Est Glom Filt Rate - Afr Amer 36 mL/min (>60)
== END ==
PROVIDERS: PCP Family Medicine; Visit Provider Internal Medicine Nephrology
DX: N18.3 Chronic kidney disease, stage 3 (moderate) (principal); E83.42 Hypomagnesemia
CPT/HCPCS: 36415; 82565; 82575; 84156

== ENCOUNTER → 2022-03-14 | Outpatient (CLI) | payer MEDICARE, SELFPAY ==
[2022-03-14 10:36] LABS: International Normalized Ratio 2.2; Prothrombin Time (Protime)PT. 24.2 SECONDS (11.7-14.9)
[2022-03-14 10:37] LABS: Anion Gap 6 (5-15); BUN 23 mg/dL (7-18); BUN/Creat Ratio 13.3 RATIO (10-20); Calcium,Total 9.3 mg/dL (8.5-10.1); Chloride 113 mmol/L (98-107); Cholesterol 161 mg/dL (200); Creatinine, Serum 1.73 mg/dL (0.70-1.30); EST Glomerular Filtration Rate 41 mL/min (>60); Est Glom Filt Rate - Afr Amer 49 mL/min (>60); Glucose 108 mg/dL (74-106); High Density Lipoprotein 32 mg/dL; Potassium 4.1 mmol/L (3.5-5.1); Sodium Level 142 mmol/L (136-145); Triglycerides 191 mg/dL; Very Low Density Lipoprotein 38 mg/dL (5-40)
== END | disposition home or self-care (01) ==
LOC: MTLAB 08:05
PROVIDERS: PCP Family Medicine; Referring Provider Family Medicine; Visit Provider Family Medicine
DX: I48.91 Unspecified atrial fibrillation (principal); I10 Essential (primary) hypertension
CPT/HCPCS: 36415; 80048; 80061; 85610

== ENCOUNTER → 2023-02-07 | Outpatient (CLI) | payer MEDICARE, SELFPAY ==
[2023-02-07 16:55] LABS: Anion Gap 6 (5-15); BUN 18 mg/dL (7-18); BUN/Creat Ratio 11.5 RATIO (10-20); Calcium,Total 9.2 mg/dL (8.5-10.1); Chloride 113 mmol/L (98-107); Cholesterol 154 mg/dL (200); Creatinine, Serum 1.56 mg/dL (0.70-1.30); EST Glomerular Filtration Rate 46 mL/min (>60); Est Glom Filt Rate - Afr Amer 55 mL/min (>60); Glucose 108 mg/dL (74-106); High Density Lipoprotein 36 mg/dL; Potassium 4.2 mmol/L (3.5-5.1); Sodium Level 141 mmol/L (136-145); Triglycerides 198 mg/dL; Uric Acid 5.6 mg/dL (3.5-7.2); Very Low Density Lipoprotein 40 mg/dL (5-40)
== END | disposition home or self-care (01) ==
LOC: MFPLAB 10:13
PROVIDERS: PCP Family Medicine; Visit Provider Family Medicine
DX: I10 Essential (primary) hypertension (principal); M10.9 Gout, unspecified
CPT/HCPCS: 36415; 80048; 80061; 84550

== ENCOUNTER → 2024-03-04 | Outpatient (CLI) | payer MEDICARE, SELFPAY ==
[2024-03-04 12:28] LABS: Anion Gap 5 (5-15); BUN 21 mg/dL (7-18); BUN/Creat Ratio 11.5 RATIO (10-20); Calcium,Total 8.9 mg/dL (8.5-10.1); Chloride 111 mmol/L (98-107); Cholesterol 142 mg/dL (200); Creatinine, Serum 1.82 mg/dL (0.70-1.30); EST Glomerular Filtration Rate 38 mL/min (>60); Est Glom Filt Rate - Afr Amer 46 mL/min (>60); Glucose 142 mg/dL (74-106); High Density Lipoprotein 32 mg/dL; PSA,Total - Annual Screen 3.68 ng/mL (0.00-4.00); Potassium 3.9 mmol/L (3.5-5.1); Sodium Level 140 mmol/L (136-145); Triglycerides 225 mg/dL; Very Low Density Lipoprotein 45 mg/dL (5-40)
== END | disposition home or self-care (01) ==
PROVIDERS: PCP Family Medicine; Visit Provider Family Medicine
DX: Z00.00 Encounter for general adult medical examination without abnormal findings (principal); I10 Essential (primary) hypertension; Z12.5 Encounter for screening for malignant neoplasm of prostate
CPT/HCPCS: 36415; 80048; 80061; 84153; G0103

== ENCOUNTER → 2025-02-04 | Outpatient (CLI) | payer MEDICARE, SELFPAY ==
--- OUTSIDE RECORDS SUMMARY | 2025-02-04 08:38 | XMS RPT_ITS | CCD ---
Author Organization [facility] Care Team Providers Care Housing Development Specialist Name Role Phone Eamon Matias Attending Unavailable Eamon Matias Primary Care Unavailable Allergies Allergy Classification Reported Allergen(s) Allergy Type Date of Onset Reaction(s) Facility (1 source) Sulfonamides (Antibiotic) Propensity to adverse reactions [address] [facility] Work Phone: (1 source) Sulfonamides (Antibiotic) Drug allergy (disorder) [address] [facility] Repository Medications Current Medications Medication Drug Class(es) Dates Sig (Normalized) Sig (Original) acetaminophen 325 mg / HYDROcodone bitartrate 5 mg oral tablet (2 sources) Opioid Agonist Start: 07-19-2016 take 1 tablet by mouth every four hours as needed Hydrocodone-Acet aminophen Active 1 - 2 TABLET PO EVERY 4 HOURS NEEDED May 03, 2017 12:00am colchicine 0.6 mg oral capsule (1 source) Start: 07-19-2016 take 0.6 mg by mouth once daily Colchicine Active 0.6 MG PO DAILY July 19, 2016 1:00am L.Acidoph, Paracasei,B. Lactis (1 source) Start: 07-19-2016 L.Acidoph, Paracasei,B. Lactis Active 1 EACH PO DAILY July 19, 2016 1:00am lisinopril 20 mg oral tablet (1 source) Angiotensin Converting Enzyme Inhibitor Start: 07-19-2016 take 10 mg by mouth once daily Lisinopril (Zestril) 20 MG tablet Active 10 MG PO DAILY July 19, 2016 1:00am Multivitamin,Tx-Iron -Minerals (Therems-M) 1 TABLET tablet (1 source) Start: 07-19-2016 take 1 tablet by mouth once daily Multivitamin,Tx- Iron-Minerals (Therems-M) 1 TABLET tablet Active 1 TABLET PO DAILY July 19, 2016 1:00am Problems Problem Classification Problem Date Documented Da te Episodic/Chronic Disorders of lipid metabolism (1 source) Hyperlipidemia; Translations: [Hyperlipidemia, unspecified] Chronic Essential hypertension (1 source) Benign essential hypertension; Translations: [Essential (primary) hypertension] Chronic Results Test Name Value Interpretation Reference Range Georgia vargas Basic Metabolic Profile (BMP )on 03-04-2024 BUN/CRE 11.5 RATIO Normal 10-[address] [facility] Comment on above: Performed By: #### L 501.9910, L500.4100, L500.2500 #### [facility] [address] [place], [address] CA,Total 8.9 mg/dL Normal 8.5-10.[address] [facility] Comment on above: Performed By: #### L 501.9910, L500.4100, L500.2500 #### [facility] [address] [place], [address] Chloride [Moles/Vol] 111 mmol/L High 98-107 [facility] Comment on above: Performed By: #### L 501.9910, L500.4100, L500.2500 #### [facility] [address] [place], [address] CO2 [Moles/Vol] 24.0 mmol/L Normal 21.0-32.[address] [facility] Comment on above: Performed By: #### L [id number], L500.4100, L500.2500 #### [facility] [address] [place], [address] Creatinine [Mass/Vol] 1.82 mg/dL High 0.70-1.[address] [facility] Comment on above: Result Comment: The validity of the calculated GFR GFRAA in patients over 70 years has not been determined. Clinical correlation is essential. Performed By: #### L 501.9910, L500.4100, L500.2500 #### [facility] [address] [place], [address] EST GFR - AA 46 mL/min Low >[address] [facility] Comment on above: Result Comment: Afri can Moroccan GFR Calc Performed By: #### L 501.9910, L500.4100, L500.2500 #### [facility] [address] [place], [address] GAP 5 Normal 5-[address] [facility] Comment on above: Performed By: #### L 501.9910, L500.4100, L500.2500 #### [facility] [address] [place], [address] GFR/1.73 sq M.predicted among non-blacks MDRD (S/P/Bld) [Vol rate/Area] 38 mL/min/{1.73_m2} Low >[address] [facility] Comment on above: Result Comment: Non- GFR Calc Performed By: #### L 501.9910, L500.4100, L500.2500 #### [facility] [address] [place], [address] Glucose [Mass/Vol] 142 mg/dL High 74-106 [facility] Comment on above: Result Comment: Fast ing Glucose result greater than or equal to 126 mg/dL suggests DIABETES MELLITUS per A.D.A. criteria. Performed By: #### L 501.9910, L500.4100, L500.2500 #### [facility] [address] [place], [address] Potassium [Moles/Vol] 3.9 mmol/L Normal 3.5-5.[address] [facility] Comment on above: Performed By: #### L 501.9910, L500.4100, L500.2500 #### [facility] [address] [place], [address] Sodium [Moles/Vol] 140 mmol/L Normal 136-145 [facility] Comment on above: Performed By: #### L 501.9910, L500.4100, L500.2500 #### [facility] [address] [place], [address] Urea nitrogen [Mass/Vol] 21 mg/dL High 7-[address] [facility] Comment on above: Performed By: #### L 501.9910, L500.4100, L500.2500 #### [facility] [address] [place], [address] Lipid Profileon 03-04-2024 Cholesterol [Mass/Vol] 142 mg/dL Normal [address] [facility] Comment on above: Result Comment: <200 mg/dL Desirable 200-240 mg/dL Borderline >240 mg/dL High Risk Performed By: #### L 501.9910, L500.4100, L500.2500 #### [facility] [address] [place], [address] Cholesterol in HDL [Mass/Vol] 32 mg/dL Low [facility] Comment on above: Result Comment: The drugs N-Acetylcysteine and Metamizole may falsely depress this assay. Reference Range HDL <40 mg/dL Low HDL Cholesterol HDL >or= 60 mg/dL High HDL Cholesterol Performed By: #### L 501.9910, L500.4100, L500.2500 #### [facility] [address] [place], [address] Cholesterol in LDL [Mass/Vol] 65 mg/dL Normal 0-[address] [facility] Comment on above: Performed By: #### L 501.9910, L500.4100, L500.2500 #### [facility] [address] [place], [address] Cholesterol in VLDL [Mass/Vol] 45 mg/dL High 5-[address] [facility] Comment on above: Performed By: #### L 501.9910, L500.4100, L500.2500 #### [facility] [address] [place], [address] Triglyceride [Mass/Vol] 225 mg/dL High [facility] Comment on above: Result Comment: The drugs N-Acetylcysteine and Metamizole may falsely depress this assay. Serum Triglycerides Reference Interval Normal <150 mg/dL Borderline high 150 - 199 mg/dL High 200 - 499 mg/dL Very High > or = 500 mg/dL Performed By: #### L 501.9910, L500.4100, L500.2500 #### [facility] [address] [place], [address] PSA,Total - Annual Screenon 03-04-2024 PSA,TOT SCREEN 3.68 ng/mL Normal 0.00-4.[address] [facility] Comment on above: Result Comment: This test was performed using the TPSA assay method for the [employer] chemistry system. Values obtained with different assay methods cannot be used interchangably. When changing PSA assays in the course of monitoring a patient, additional sequential testing should be carried out to confirm baseline values. Performed By: #### L 501.9910, L500.4100, L500.2500 #### [facility] [address] [place], [address] Basophil percentageon 2021 Chloride [Moles/Vol] 113 mmol/L 98-107 [facility] Work Phone: Cholesterol [Mass/Vol] 161 mg/dL <[address] [facility] Work Phone: Comment on above: <200 mg/dL Desirable 200-240 mg/dL Borderline >240 mg/dL High Risk Glucose [Mass/Vol] 108 mg/dL 74-106 [facility] Work Phone: Comment on above: Fasting Glucose resu lt from 100 to 125 mg/dL suggests IMPAIRED HOMEOSTASIS per A.D.A. criteria. Potassium [Moles/Vol] 4.1 mmol/L 3.5-5.[address] [facility] Work Phone: Sodium [Moles/Vol] 142 mmol/L 136-145 [facility] Work Phone: Triglyceride [Mass/Vol] 191 mg/dL <[address] [facility] Work Phone: Comment on above: The drugs N-Acetylcy steine and Metamizole may falsely depress this assay.Serum Triglycerides Reference Interval Normal <150 mg/dL Borderline high 150 - 199 mg/dL High 200 - 499 mg/dL Very High > or = 500 mg/dL INR in Blood by Coagulation assayon 03-14-2022 INR Coag (Bld) [Relative time] 2.2 {INR} [facility] Work Phone: Laboratory - Chemistry and C hemistry - challengeon 03-14-2022 CO2 [Moles/Vol] 23.0 mmol/L 21.0-32.[address] [facility] Work Phone: Urea nitrogen/Creatinine [Mass ratio] 13.3 mg/mg 10-[address] [facility] Work Phone: Laboratory - Coagulationon 0 03-14-2022 PT Coag (PPP) [Time] 24.2 s 11.7-14.9 [facility] Work Phone: No Panel Informationon 03-14 Estimated GFR (MDRD) Amer 49 mL/min >[address] [facility] Work Phone: Comment on above: GFR Calc Estimated GFR (MDRD) Non-Af Amer 41 mL/min >[address] [facility] Work Phone: Comment on above: Non- GFR Calc Serum or plasma calcium trenton urement (mass/volume)on 03-14-2022 Calcium [Mass/Vol] 9.3 mg/dL 8.5-10.1 [facility] Work Phone: Serum or plasma cholesterol in HDL measurement (mass/volume)on 03-14-2022 Cholesterol in HDL [Mass/Vol] 32 mg/dL >[address] [facility] Work Phone: Comment on above: The drugs N-Acetylcy steine and Metamizole may falsely depress this assay. Reference Range HDL <40 mg/dL Low HDL Cholesterol HDL >or= 60 mg/dL High HDL Cholesterol Serum or plasma cholesterol in VLDL measurement (mass/volume)on 03-14-2022 Cholesterol in VLDL [Mass/Vol] 38 mg/dL 5-[address] [facility] Work Phone: Serum or plasma creatinine m easurement (mass/volume)on 03-14-2022 Creatinine [Mass/Vol] 1.73 mg/dL 0.70-1.[address] [facility] Work Phone: Comment on above: The validity of the calculated GFR & GFRAA in patients over 70 years has not been determined. Clinical correlation is essential. Serum or plasma low density lipoprotein (LDL) cholesterol measurement (mass/volume)on 03-14-2022 Cholesterol in LDL [Mass/Vol] 91 mg/dL 0-[address] [facility] Work Phone: Serum or plasma urea nitroge n measurement (mass/volume)on 03-14-2022 Urea nitrogen [Mass/Vol] 23 mg/dL 7-[address] [facility] Work Phone: Thin prep Papanicolaou smear with manual screeningon 03-14-2022 Thin prep Papanicolaou smear with manual screening 6 5-[address] [facility] Work Phone: Vital Signs Date Time Vital Sign Value Performing Clinician Faci lity 03-14-2022 08:03-0400 Body height 172.72 cm [facility] Work Phone: Encounters Encounter Date Encounter Type Care Provider Facility Start: 04-05-2024 Encounter for genera l adult medical examination without abnormal findings Eamon Matias [facility] Start: 03-04-2024 End: 03-04-[facility] Start: 03-14-2022 End: 03-14-[address] [facility] Work Phone: Start: 03-14-2022 End: 03-14-2022 Patient encounter procedure [facility] Payers Date Payer Category Payer Self-pay [id number] 2013 Medicare [id number] Unknown [id number] Social History Date Type Detail Facility Start: [facility]-03-2017 [facility] Work Phone: Start: 03-14-2022 None [facility] Work Phone: Start: 03-14-2022 Non-smoker [facility] Work Phone: Start: 1940 Sex Assigned At Male [facility] Work Phone: Evaluation note Note Date & Type Note Facility Evaluation note No assessment information availa ble [facility] Work Phone: Advance Directives No Advanced Directives Records Found Advance Directive Response Recorded Date/ Time Advance Directives Yes June 3:23pm Living Will No May 03, 201 7 7:54am Power of Cyanide Furnace Operator No May 03, 017 7:54am Summary Purpose Family History No Family History Records Found Additional Source Comments Goals (unrecognized section and content) Goals may be documented in a n alternate section (unrecognized sect ion and content) No Status Records Found INFORMATION SOURCE (unrecogn ized section and content) DATE CREATED AUTHOR 04/06/2024 [facility] FOR RECORDS PERTAINING TO PATIENTS WHO ARE OR HAVE BEEN ENROLLED IN A CHEMICAL DEPENDENCY/SUBSTANCEABUSE PROGRAM, SOME INFORMATION MAY BE OMITTED. This clinical summary was aggregated from multiple sources. Caution should be exercised in using it in the provision of clinical care. This summary normalizes information from multiple sources, and as a consequence, information in this document may materially change the coding, format and clinical context of patient data. In addition, data may be omitted in some cases. CLINICAL DECISIONS SHOULD BE BASED ON THE PRIMARY CLINICAL RECORDS. [employer] [facility]. provides no warranty or guarantee of the accuracy or completeness of information in this document.
[2025-02-04 11:29] LABS: AST(SGOT) 21 U/L (<=37); Alanine Aminotransfer ALT/SGPT 14 U/L (<=46); Albumin, Serum 3.8 g/dL (3.4-4.8); Alkaline Phosphatase 113 U/L (40-129); Anion Gap 12 (5-15); BUN 19 mg/dL (4-19); BUN/Creat Ratio 10.1 RATIO (10-20); Calcium,Total 9.8 mg/dL (7.6-11.0); Carbon Dioxide 21.8 mmol/L (21.0-32.0); Chloride 106 mmol/L (98-108); Cholesterol 153 mg/dL (<=200); Globulin 2.5 g/dL (2.2-4.2); Glucose 111 mg/dL (70-99); Low Density Lipoprotein Calc. 94 mg/dL; Potassium 4.5 mmol/L (3.3-5.1); Triglycerides 102 mg/dL; Very Low Density Lipoprotein 20 mg/dL (5-40); cholesterol:hdl ratio screen 4.01
== END | disposition home or self-care (01) ==
LOC: MFPLAB 08:16
PROVIDERS: PCP Family Medicine; Referring Provider Family Medicine; Visit Provider Family Medicine
DX: I10 Essential (primary) hypertension (principal)
CPT/HCPCS: 36415; 80053; 80061